=== PATIENT | female | born 1975 | race Caucasian/White ===

== ENCOUNTER 2017-03-16 21:44 | Emergency (ER) | payer BC, OTHER ==
[~2017-03-16] VITALS: Ht 175.3 cm; Wt 59.0 kg
[2017-03-16] MEDS ORDERED: NEOMY/BACITRA/POLYMYXIN B OINT UD PACKET TP ONE ×2 (22:00→22:15)
[2017-03-16] MEDS ORDERED: LIDOCAINE HCL 1% 20 ML VIAL TP ONE (22:00)
--- NOTE | 2017-03-16 22:15 | NUR ---
Patient discharged to home in stable conditon. Written and verbal after care instructions given. Patient verbalizes understanding of instructions.
== END 2017-03-16 22:17 | disposition home or self-care (01) ==
LOC: ER 21:51
DX: S01.81XA Laceration without foreign body of other part of head, initial encounter (principal); Z88.8 Allergy status to other drugs, medicaments and biological substances; W18.30XA Fall on same level, unspecified, initial encounter; Y93.89 Activity, other specified; Y99.8 Other external cause status; Y92.89 Other specified places as the place of occurrence of the external cause
CPT/HCPCS: 12011; 99283; A4217; A4663; J3490